=== PATIENT | female | born 1965 | race African-American/Black ===

== ENCOUNTER 2016-11-15 19:21 | Emergency (ER) | payer SELFPAY ==
--- NOTE | 2016-11-15 19:34 | ER Document Report ---
ED Medical Screen (RME) - General Stated Complaint: CHEST PAIN Time seen by provider: 19:31 Mode of Arrival: Ambulatory Information source: Patient Notes: 51 yo htn, hyperlipedemic, borderline diabetic. female with crushing retrosternal chest pain onset this morning, light at first, progressed throughout the day. Hot sweats. PA 2015, stents placed. in [place]. This pain feels like when she had the PA.
[2016-11-15] MEDS ORDERED: ASPIRIN 81 MG TABLET, CHEWABLE PO ONE (20:15)
[2016-11-15] MEDS ORDERED: NITROGLYCERIN 0.4 MG/TAB 25 TAB/BOTTLE SL PRN (20:16)
[2016-11-15 20:27] LABS: ABSOLUTE BASOPHILS # (AUTO) 0.1 10^3/uL (0.0-0.2); ABSOLUTE EOSINOPHILS # (AUTO) 0.3 10^3/uL (0.0-0.6); ABSOLUTE LYMPHOCYTES (AUTO) 2.7 10^3/uL (0.5-4.7); ABSOLUTE MONOCYTES (AUTO) 0.8 10^3/uL (0.1-1.4); ABSOLUTE NEUT (AUTO) 5.2 10^3/uL (1.7-8.2); BASOPHILS % (AUTO) 0.9 % (0-2); HEMATOCRIT 30.3 % (36.0-47.0); HEMOGLOBIN 9.9 g/dL (12.0-15.5); HGB HCT DIFFERENCE -0.6; LYMPHOCYTES % (AUTO) 30.1 % (13-45); MEAN CORPUSCULAR HEMOGLOBIN 24.7 pg (27.0-33.4); MEAN CORPUSCULAR HGB CONC 32.8 g/dL (32.0-36.0); MEAN CORPUSCULAR VOLUME 75 fl (80-97); MONOCYTES % (AUTO) 8.8 % (3-13); RED BLOOD COUNT 4.02 10^6/uL (3.72-5.28); RED CELL DISTRIBUTION WIDTH 14.8 % (11.5-14.0); SEGMENTED NEUTROPHILS % (AUTO) 57.2 % (42-78); WHITE BLOOD COUNT 9.1 10^3/uL (4.0-10.5)
[2016-11-15 20:44] LABS: ANION GAP 9 (5-19); BLOOD UREA NITROGEN 15 mg/dL (7-20); CARBON DIOXIDE 31 mmol/L (22-30); CHLORIDE 102 mmol/L (98-107); CREATININE RESULT 1.34 mg/dL (0.52-1.25); GLUCOSE 103 mg/dL (75-110); LIPASE 105.3 U/L (23-300); POTASSIUM 3.8 mmol/L (3.6-5.0); SODIUM 141.5 mmol/L (137-145)
[2016-11-15] MEDS: MORPHINE SULFATE 10 MG/ML INJ IV PRN ×2 (21:03→23:55)
[2016-11-15] MEDS ORDERED: MORPHINE SULFATE 10 MG/ML INJ IV ONE (21:43)
[2016-11-16] MEDS ORDERED: KETOROLAC TROMETHAMINE INJ/PF 30 MG/1 ML SDV IV ONE (01:21)
--- NOTE | 2016-11-16 01:21 | ER Document Report ---
ED General - General Chief Complaint: Chest Pain Stated Complaint: CHEST PAIN Mode of Arrival: Ambulatory Notes: Patient is a 51-year-old female with past medical history of known coronary artery disease with a stent placed 2 months ago, hypertension, hyperlipidemia, and obesity who presents with left-sided chest pain. States that she's had this pain for 2 days and became worse night prompting her to come to the emergency department. She describes it as a stabbing, pressure-like pain over the left chest. Denies any radiation of pain. Denies associated vomiting, diaphoresis, or shortness of breath. Exertion does not worsen the pain. States that this feels less intense than when she had her stress test and was found to have an NSTEMI during that event. 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 At time of arrival she states her pain is much less severe than it was prior to arrival. Notes that she took nitroglycerin at home which she worsened her pain. Nothing improved the pain. - Related Data Allergies/Adverse Reactions: No Known Allergies Allergy (Unverified 11/15/16 19:40) Past Medical History - General Information source: Patient - Social History Smoking Status: Never Smoker Frequency of alcohol use: None Drug Abuse: None Lives with: Spouse/Significant other Family History: Reviewed & Not Pertinent - Past Medical History Cardiac Medical History: Reports: Hx Hypertension Past Surgical History: Reports: Hx Cardiac Catheterization, Hx Hysterectomy - Immunizations Hx Diphtheria, Pertussis, Tetanus Vaccination: Yes Review of Systems - Review of Systems Notes: Constitutional: Negative for fever. HENT: Negative for sore throat. Eyes: Negative for visual changes. Cardiovascular: Positive for chest pain. Respiratory: Negative for shortness of breath. Gastrointestinal: Negative for abdominal pain, vomiting or diarrhea. Genitourinary: Negative for dysuria. Musculoskeletal: Negative for back pain. Skin: Negative for rash. Neurological: Negative for headaches, weakness or numbness. 10 point ROS negative except as marked above and in HPI. Physical Exam - Vital signs Vitals: Temp Pulse Resp BP Pulse Ox 98.0 F 86 22 H 120/78 100 11/15/16 19:33 11/15/16 19:33 11/15/16 19:33 11/15/16 19:33 11/15/16 19:33 Interpretation: Normal Notes: PHYSICAL EXAMINATION: GENERAL: Well-appearing, well-nourished and in no acute distress. HEAD: Atraumatic, normocephalic. EYES: Pupils equal round and reactive to light, extraocular movements intact, sclera anicteric, conjunctiva are normal. ENT: nares patent, oropharynx clear without exudates. Moist mucous membranes. NECK: Normal range of motion, supple without lymphadenopathy LUNGS: Breath sounds clear to auscultation bilaterally and equal. No wheezes rales or rhonchi. HEART: Regular rate and rhythm without murmurs Chest wall: Severe pain on palpation of the left anterior chest ABDOMEN: Soft, nontender, normoactive bowel sounds. No guarding, no rebound. No masses appreciated. EXTREMITIES: Normal range of motion, no pitting or edema. No cyanosis. NEUROLOGICAL: No focal neurological deficits. Moves all extremities spontaneously and on command. PSYCH: Normal mood, normal affect. SKIN: Warm, Dry, normal turgor, no rashes or lesions noted. Course - Re-evaluation Re-evalutation: 2315 Presentation of chest pain in an otherwise well appearing patient. Low clinical suspicion for ACS given clinical history, exam, EKG without ST elevations or depressions, and negative troponin 2 3 hours apart. PE also seems unlikely given clinical history, absence of tachycardia or dyspnea. Wells score is 0. CXR without evidence of pneumothorax or pneumonia. No widened mediastinum. Aortic dissection also seems unlikely given history, symmetric pulses, CXR, and vitals. Blood pressures equal in both upper extremities. Patient's pain did completely resolve. She had severely reproducible chest pain on exam with even the slightest palpation over the left chest wall causing an immediate reproduction of her pain.At this time will discharge with return precautions and follow-up recommendations. Verbal discharge instructions given a the bedside and opportunity for questions given. Medication warnings reviewed. Patient is in agreement with this plan and has verbalized understanding of return precautions and the need for primary care follow-up in the next 24-72 hours. - Vital Signs Vital signs: Temp Pulse Resp BP Pulse Ox 98.0 F 86 17 107/74 98 11/15/16 19:33 11/15/16 19:33 11/16/16 01:35 11/16/16 01:35 11/16/16 01:35 - Laboratory Result Diagrams: 11/15/16 20:15 01/08/17 20:15 Laboratory results interpreted by me: 11/15/16 11/15/16 20:15 20:15 Hgb 9.9 L Hct 30.3 L MCV 75 L MCH 24.7 L RDW 14.8 H Carbon Dioxide 31 H Creatinine 1.34 H Est GFR ( Amer) 51 L Est GFR (Non-Af Amer) 42 L Discharge - Discharge Clinical Impression: Chest pain Qualifiers: Chest pain type: unspecified Qualified Code(s): R07.9 - Chest pain, unspecified Condition: Good Disposition: HOME, SELF-CARE Additional Instructions: You were seen today for chest pain. The exact cause of your pain is unclear. However, based on your cardiac enzyme testing, chest x-ray, and EKG it does not appear that it is from an immediately life-threatening cause at this time. Although your testing here is normal is critical that you follow-up with your primary care physician for continued evaluation of this chest pain and possible stress testing. I recommended you see your physician within the next 24-48 hours to be evaluated for consideration of a stress test. Please return to emergency department immediately if you have worsening of your chest pain, shortness of breath, vomiting, become unable to exert yourself due to pain or difficulty breathing, you pass out, or have any pain that radiates into your arms, jaw, or back. Please also return if you have any additional symptoms that are concerning to you.
[2016-11-16] MEDS ORDERED: LIDOCAINE 5% (700 MG) TRANSDERMAL ADH..PATCH TP ONE (01:27)
[2016-11-16] MEDS: MORPHINE SULFATE 10 MG/ML INJ IV PRN (01:35)
[2016-11-16 02:26] VITALS: BP 105/75
--- NOTE | 2016-11-16 08:56 | EKG REPORT ---
SEVERITY:- ABNORMAL ECG - SINUS RHYTHM NONSPECIFIC T ABNORMALITIES, ANT-LAT LEADS : Confirmed by: Anna Paris 16-Nov-2016 08:55:49
--- NOTE | 2016-11-17 08:15 | EKG REPORT ---
SEVERITY:- ABNORMAL ECG - SINUS RHYTHM NONSPECIFIC T ABNORMALITIES, ANT-LAT LEADS : Confirmed on behalf of: Anna Paris 17-Nov-2016 08:14:51
== END 2016-11-16 02:55 | disposition home or self-care (01) ==
LOC: ER 19:21
DX: R07.9 Chest pain, unspecified (principal); I25.2 Old myocardial infarction
CPT/HCPCS: 93005 ×2; 99285; 96374; 96375; 36415; 83690; 85025; 80048; 84484; 71010; 93010 ×2; J1885; J2270 ×2

== ENCOUNTER 2017-01-13 06:27 | Day surgery (SDC) | payer BC ==
[~2017-01-13 06:27] MED LIST: KETOROLAC TROMETHAMINE 0.45% 4 DROP/0.4 ML DROPERETTE OS PRN
[2017-01-13] MEDS: BESIFLOXACIN HCL 0.6% OPH SUSP 5 ML BOTTLE OS PRN ×3 (06:55→08:02)
[2017-01-13] MEDS: CYCLOPENTOLATE 0.2%/PHENYLEPHRINE 1% OPH SOLN 2 ML OS PRN ×4 (06:55→07:16)
[2017-01-13] MEDS: TROPICAMIDE 1% OPH SOLN 3 ML OS PRN ×4 (06:55→07:16)
[2017-01-13] MEDS: TETRACAINE HCL 0.5% OPH SOLN 0.6 ML DROPERETTE OS PRN ×3 (06:56→07:16)
[2017-01-13] MEDS ORDERED: MIDAZOLAM 2 MG/2 ML INJ ONE (07:06)
[2017-01-13] MEDS ORDERED: FENTANYL CITRATE INJ/PF 100 MCG/2 ML AMPUL ONE (07:07)
[2017-01-13] MEDS ORDERED: LIDOCAINE 1% INJ-PF (10 MG/ML) 30 ML SDV ONE (07:08)
[2017-01-13] MEDS ORDERED: EPINEPHRINE INJ/PF 1 MG/1 ML AMPULE ONE (07:08)
[2017-01-13] MEDS ORDERED: CHONDR SU A NA/HYALUR INTRAOC KIT (SURGICARE) ONE (07:09)
[2017-01-13] MEDS ORDERED: BESIFLOXACIN HCL 0.6% OPH SUSP 5 ML BOTTLE ONE (07:09)
[2017-01-13] MEDS: TOBRAMYCIN SULFATE/DEXAMETH OPH OINTMENT 3.5 GM ONE ×2 (07:42→08:02)
== END 2017-01-13 08:46 | disposition home or self-care (01) ==
LOC: SC 06:27
PROVIDERS: ATTEND Ophthalmology
PROC: 08RK3JZ Replacement of Left Lens with Synthetic Substitute, Percutaneous Approach (ICD-10-PCS; principal; 2017-01-13 07:30)
DX: H25.12 Age-related nuclear cataract, left eye (principal); E78.00 Pure hypercholesterolemia, unspecified; E11.9 Type 2 diabetes mellitus without complications; I10 Essential (primary) hypertension; I25.10 Atherosclerotic heart disease of native coronary artery without angina pectoris; Z79.82 Long term (current) use of aspirin; Z79.899 Other long term (current) drug therapy; Z79.84 Long term (current) use of oral hypoglycemic drugs; Z87.891 Personal history of nicotine dependence; Z79.02 Long term (current) use of antithrombotics/antiplatelets; I25.2 Old myocardial infarction
CPT/HCPCS: 82962; 66984; V2630; J2250; J3490 ×3; J0171; J3010; 142

== ENCOUNTER 2017-01-27 07:25 | Day surgery (SDC) | payer BC ==
[~2017-01-27 07:25] MED LIST changes: +CHONDR SU A NA/HYALUR INTRAOC KIT (SURGICARE) ONE; +EPINEPHRINE INJ/PF 1 MG/1 ML AMPULE ONE; +KETOROLAC TROMETHAMINE 0.45% 4 DROP/0.4 ML DROPERETTE OD PRN; -KETOROLAC TROMETHAMINE 0.45% 4 DROP/0.4 ML DROPERETTE OS PRN; +LIDOCAINE 1% INJ-PF (10 MG/ML) 30 ML SDV ONE; +TOBRAMYCIN SULFATE/DEXAMETH OPH OINTMENT 3.5 GM ONE
[2017-01-27] MEDS: TROPICAMIDE 1% OPH SOLN 3 ML OD PRN ×3 (08:05→08:21)
[2017-01-27] MEDS: CYCLOPENTOLATE 0.2%/PHENYLEPHRINE 1% OPH SOLN 2 ML OD PRN ×3 (08:05→08:21)
[2017-01-27] MEDS: TETRACAINE HCL 0.5% OPH SOLN 0.6 ML DROPERETTE OD PRN ×3 (08:05→08:31)
[2017-01-27] MEDS: BESIFLOXACIN HCL 0.6% OPH SUSP 5 ML BOTTLE OD PRN ×3 (08:05→08:55)
[2017-01-27] MEDS ORDERED: MIDAZOLAM 2 MG/2 ML INJ ONE (08:20)
[2017-01-27] MEDS ORDERED: TRYPAN BLUE 0.06 % OPH SOLN 0.5 ML DISP.SYRIN ONE (08:20)
== END 2017-01-27 09:41 | disposition home or self-care (01) ==
LOC: SC 07:25
PROVIDERS: ATTEND Ophthalmology
PROC: 08RJ3JZ Replacement of Right Lens with Synthetic Substitute, Percutaneous Approach (ICD-10-PCS; principal; 2017-01-27 08:30)
DX: H25.11 Age-related nuclear cataract, right eye (principal); Z96.1 Presence of intraocular lens; I25.10 Atherosclerotic heart disease of native coronary artery without angina pectoris; E11.9 Type 2 diabetes mellitus without complications; I10 Essential (primary) hypertension; E78.00 Pure hypercholesterolemia, unspecified; M19.90 Unspecified osteoarthritis, unspecified site; Z79.82 Long term (current) use of aspirin; Z79.899 Other long term (current) drug therapy; Z79.84 Long term (current) use of oral hypoglycemic drugs; Z87.891 Personal history of nicotine dependence
CPT/HCPCS: 82962; 66984; V2630; J2250; J3490 ×3; J0171; 142

== ENCOUNTER 2017-04-12 15:18 | Emergency (ER) | payer SELFPAY ==
--- NOTE | 2017-04-12 15:30 | ER Document Report ---
ED Medical Screen (RME) - General Chief Complaint: Numbness of Face Stated Complaint: NUMBNESS/TINGLING LEFT SIDE Time Seen by Provider: 04/12/17 15:29 Notes: Patient says that her left face became numb a couple of hours ago while she was at work. She felt the numbness in her left arm and leg as well. It caused her to have trouble walking and keeping her balance. She feels like needles sticking in her face on the left side. Also, experiencing a sharp pain in the back of her head. Has never had this before and has never had a stroke before. Has had a heart attack in the past. TRAVEL OUTSIDE OF THE [place] IN LAST 30 DAYS: No - Related Data Allergies/Adverse Reactions: atorvastatin [From Lipitor] Allergy (Verified 04/12/17 15:20) Generalized rash Past Medical History - Past Medical History Cardiac Medical History: Reports: Hx Heart Attack - SEP 18, 2016, Hx Hypertension Pulmonary Medical History: Denies: Hx Asthma Neurological Medical History: Denies: Hx Cerebrovascular Accident, Hx Seizures Renal/ Medical History: Denies: Hx Peritoneal Dialysis GI Medical History: Denies: Hx Hepatitis, Hx Hiatal Hernia, Hx Ulcer Infectious Medical History: Denies: Hx Hepatitis Past Surgical History: Reports: Hx Cardiac Catheterization, Hx Hysterectomy. Denies: Hx Mastectomy, Hx Open Heart Surgery, Hx Pacemaker - Immunizations Hx Diphtheria, Pertussis, Tetanus Vaccination: Yes Physical Exam - Vital signs Vitals: Temp Pulse Resp BP Pulse Ox 97.8 F 95 19 113/69 99 04/12/17 15:20 04/12/17 15:20 04/12/17 15:20 04/12/17 15:20 04/12/17 15:20 Course - Vital Signs Vital signs: Temp Pulse Resp BP Pulse Ox 97.8 F 95 19 113/69 99 04/12/17 15:20 04/12/17 15:20 04/12/17 15:20 04/12/17 15:20 04/12/17 15:20
--- NOTE | 2017-04-12 15:46 | RADIOLOGY REPORT (SQ) ---
EXAM DESCRIPTION: CT HEAD WITHOUT COMPLETED DATE/TIME: 04/12/2017 3:37 pm REASON FOR STUDY: STROKE COMPARISON: None. TECHNIQUE: Axial images acquired through the brain without intravenous contrast. Images reviewed wi th bone, brain and subdural windows. Images stored on PACS. All CT scanners at this facility use dose modulation, iterative reconstruction, and/or weight based d osing when appropriate to reduce radiation dose to as low as reasonably achievable (ALARA). [facility]: Dose Right [facility]: CareDose [facility]: Dose Right [facility]: Teradose 4D [facility]: Folloze RADIATION DOSE: 64.61 mGy. LIMITATIONS: None. FINDINGS: VENTRICLES: Normal size and contour. CEREBRUM: No masses. No hemorrhage. No midline shift. Normal zurita/white matter differentiation. N o evidence for acute infarction. CEREBELLUM: No masses. No hemorrhage. No alteration of density. No evidence for acute infarction. EXTRAAXIAL SPACES: No fluid collections. No masses. ORBITS AND GLOBE: No intra- or extraconal masses. Normal contour of globe without masses. CALVARIUM: No fracture. PARANASAL SINUSES: No fluid or mucosal thickening. SOFT TISSUES: No mass or hematoma. OTHER: No other significant finding. IMPRESSION: NORMAL BRAIN CT WITHOUT CONTRAST. TECHNICAL DOCUMENTATION: JOB ID: [id number] Quality ID # [id number]: Final reports with documentation of one or more dose reduction techniques (e.g., Au tomated exposure control, adjustment of the mA and/or kV according to patient size, use of iterative reconstruction technique) 2010 [employer]- All Rights Reserved
--- NOTE | 2017-04-12 15:52 | RADIOLOGY REPORT (SQ) ---
EXAM DESCRIPTION: CHEST SINGLE VIEW COMPLETED DATE/TIME: 04/12/2017 3:41 pm REASON FOR STUDY: STROKE COMPARISON: 06/15/2017 EXAM PARAMETERS: NUMBER OF VIEWS: One view. TECHNIQUE: Single frontal radiographic view of the chest acquired. RADIATION DOSE: NA LIMITATIONS: None. FINDINGS: LUNGS AND PLEURA: No opacities, masses or pneumothorax. No pleural effusion. MEDIASTINUM AND HILAR STRUCTURES: No masses. Contour normal. HEART AND VASCULAR STRUCTURES: Heart normal in size. Normal vasculature. BONES: No acute findings. HARDWARE: None in the chest. OTHER: No other significant finding. IMPRESSION: NO ACUTE RADIOGRAPHIC FINDING IN THE CHEST. TECHNICAL DOCUMENTATION: JOB ID: [id number]
--- NOTE | 2017-04-12 15:54 | ER Document Report ---
ED NIH Stroke Scale - NIH Stroke Scale *: 1. NIH scale should be completed with appropriate accompanying assessment tools. *: 2. The NIH should reflect what the patient is capable of doing and should not be coached by the clinician. 1a. Level of Consciousness: 0=Alert;keenly responsive -: 1=Drowsy -: 2=Obtunded -: 3=Coma/unresponsive or reflex to noxious stimuli. 1a. Responses: 0 1b. Orientation Questions: a. What month is it? -: b. How old are you? -: 0=Answers both questions correctly. -: 1=Answers one question correctly or patient is intubated or has orotracheal trauma. -: 2=Answers neither question correctly. 1b. Responses: 0 1c. Response to commands: a. Open and close eyes? -: b. Combination Saw Operator and release hand? -: Credit is given despite weakness. Demonstration of task is permitted. Substitute command if hands cannot be used. -: 0=Performs both tasks correctly -: 1=Performs one task correctly -: 2=Performs neither task correctly 1c. Responses: 0 2. Gaze: Establish eye contact and instruct patient to "Follow my finger" -: 0=Normal -: 1=Partial gaze palsy. Gaze is abnormal in one or both eyes, but where forced deviation or total gaze paresis is not present. -: 2=Forced deviation or total gaze paresis. 2. Responses: 0 3. Visual Rosas: Sees fingers in all four quadrants. -: 0=No visual loss. -: 1=Partial hemianopsia. -: 2=Complete hemianopsia. -: 3=Bilateral hemianopsia (including Cortical blindness) 3. Responses: 0 4. Facial Movement: Instruct patient to: -: a. Show me your teeth -: b. Raise your eyebrows -: c. Close your eyes -: d. Smile -: 0=Normal symmetrical movement -: 1=Minor paralysis (flattened nasolabial fold, asymmetry on smiling). -: 2=Partial paralysis (total or near total paralysis of lower face). -: 3=Complete paralysis of upper and lower face 4. Responses: 0 5. Motor functions (left arm): Alternate sides and extend each arm with palms down (90 degrees if sitting or 45 degrees for supine). -: 0=No drift;limb holds for full 10 seconds. -: 1=Drift; limb holds but drifts down before full 10 seconds, but does not hit bed. -: 2=Some effort against gravity; limb cannot get to or maintain position. -: 3=No effort against gravity; limb falls. -: 4=No movement. -: UN=Amputation, joint fusion, explain in comments. 5. Responses (left arm): 0 5. Motor Functions (right arm): Alternate sides and extend each arm with palms down (90 degrees if sitting or 45 degrees for supine). -: 0=No drift;limb holds for full 10 seconds. -: 1=Drift; limb holds but drifts down before full 10 seconds, but does not hit bed. -: 2=Some effort against gravity; limb cannot get to or maintain position. -: 3=No effort against gravity; limb falls. -: 4=No movement. -: UN=Amputation, joint fusion, explain in comments. 5. Responses (right arm): 0 6. Motor Functions (left leg): With patient lying supine, alternate sides and extend each leg (30 degrees always while supine). -: 0=No drift, leg holds position for full 5 seconds -: 1=Drift; leg falls before full 5 seconds but does not hit bed. -: 2=Some effort against gravity, leg falls to bed but some effort against gravity. -: 3=No effort against gravity, leg falls to bed immediately. -: 4=No movement. -: UN=Amputation, joint fusion; explain in comments. 6. Responses (left leg): 0 6. Motor Functions (right leg): With patient lying supine, alternate sides and extend each leg (30 degrees always while supine). -: 0=No drift, leg holds position for full 5 seconds -: 1=Drift; leg falls before full 5 seconds but does not hit bed. -: 2=Some effort against gravity, leg falls to bed but some effort against gravity. -: 3=No effort against gravity, leg falls to bed immediately. -: 4=No movement. -: UN=Amputation, joint fusion; explain in comments. 6. Responses (right leg): 0 7. Limb Ataxia: With eyes open instruct patient to: -: a. "Touch your finger to your nose". -: b. "Touch your heel to your valentin" -: 0=Absent -: 1=Present in one limb. -: 2=Present in two limbs. -: UN=Amputation or joint fusion; explain in comments. 7. Responses: 0 8. Sensory: Test sensation using pinprick or noxious stimuli. Test as many body parts as possible. -: 0=Normal;no sensory loss -: 1=Mile to moderate sensory loss (patient feels pin prick but is less sharp on affected side). -: 2=Severe or total sensory loss. 8. Responses: 0 9. Best Language: Instruct patient to: -: a. "Describe what you see in this picture." -: b. "Name the items in this picture." -: c. "Read these sentences." -: 0=No aphasia, normal -: 1=Mild to moderate aphasia. -: 2=Severe aphasia -: 3=Mute, global aphasia, no usable speech or auditory comprehension. 9. Responses: 0 10. Articulation, Dysarthia: Instruct patient to: -: "Read these words" or "Repeat these words" -: 0=Normal -: 1=Mild to moderate; patient may slur some words but can be understood without difficulty. -: 2=Severe; patients speech so slurred as to be unintelligible in the absence of dysphasia. -: UN=Intubated or other physical barrier, explain in comments. 10. Responses: 0 11. Extinction or inattention: 0=No abnormality -: 1= Visual, tactile, auditory, spatial, or personal inattention or extinction to bilateral simulation in one or the sensory modalities. -: 2=Profound radha-inattention or radha-inattention to more than one modality; does not recognize own hand. 11. Responses: 0 Total Score: 0
--- NOTE | 2017-04-12 16:12 | ER Document Report ---
ED General - General Chief Complaint: Numbness of Face Stated Complaint: NUMBNESS/TINGLING LEFT SIDE Time Seen by Provider: 04/12/17 15:29 Mode of Arrival: Wheelchair Information source: Patient Notes: 51-year-old female presents with complaints of left leg pain. Pt notes that is hurtsto walk due ot the pain, notes she has chronic back pain., pt notes that after the pain occured she started to feel tingling and numb on the left hand and left side of her face. TRAVEL OUTSIDE OF THE [place] IN LAST 30 DAYS: No - HPI Onset: Just prior to arrival Onset/Duration: Sudden Quality of pain: Sharp Severity: Mild Pain Level: 1 Associated symptoms: Body/muscle aches, Headache Exacerbated by: Movement Relieved by: Denies Similar symptoms previously: Yes Recently seen / treated by doctor: Yes - Related Data Allergies/Adverse Reactions: atorvastatin [From Lipitor] Allergy (Verified 04/12/17 15:20) Generalized rash Past Medical History - Social History Smoking Status: Never Smoker Cigarette use (# per day): No Chew tobacco use (# tins/day): No Smoking Education Provided: No Family History: Reviewed & Not Pertinent Patient has suicidal ideation: No Patient has homicidal ideation: No - Past Medical History Cardiac Medical History: Reports: Hx Heart Attack - SEP 18, 2016, Hx Hypertension Pulmonary Medical History: Denies: Hx Asthma Neurological Medical History: Denies: Hx Cerebrovascular Accident, Hx Seizures Renal/ Medical History: Denies: Hx Peritoneal Dialysis GI Medical History: Denies: Hx Hepatitis, Hx Hiatal Hernia, Hx Ulcer Infectious Medical History: Denies: Hx Hepatitis Past Surgical History: Reports: Hx Cardiac Catheterization, Hx Hysterectomy. Denies: Hx Mastectomy, Hx Open Heart Surgery, Hx Pacemaker - Immunizations Hx Diphtheria, Pertussis, Tetanus Vaccination: Yes Review of Systems - Review of Systems Notes: REVIEW OF SYSTEMS: CONSTITUTIONAL : Denies fever, chills, or sweats. Denies recent illness. EENT: Denies eye, ear, throat, or mouth pain or symptoms. Denies nasal or sinus congestion or discharge. Denies throat, tongue, or mouth swelling or difficulty swallowing. CARDIOVASCULAR: Denies chest pain. Denies palpitations or racing or irregular heart beat. Denies ankle edema. RESPIRATORY: Denies cough, cold, or chest congestion. Denies shortness of breath, difficulty breathing, or wheezing. GASTROINTESTINAL: Denies abdominal pain or distention. Denies nausea, vomiting , or diarrhea. Denies blood in vomitus, stools, or per rectum. Denies black, tarry stools. Denies constipation. GENITOURINARY: Denies difficulty urinating, painful urination, burning, frequency, blood in urine, or discharge. FEMALE GENITOURINARY: Denies vaginal bleeding, heavy or abnormal periods, irregular periods. Denies vaginal discharge or odor. MUSCULOSKELETAL: Admits to leg pain chronic back pain SKIN: Denies rash, lesions or sores. HEMATOLOGIC : Denies easy bruising or bleeding. LYMPHATIC: Denies swollen, enlarged glands. NEUROLOGICAL: Facial numbness on the left and tingling in her hands PSYCHIATRIC: Denies anxiety or stress. Denies depression, suicidal ideation, or homicidal ideation. ALL OTHER SYSTEMS REVIEWED AND NEGATIVE. Dictation was performed using [employer] voice recognition software PHYSICAL EXAMINATION: GENERAL: Well-appearing, well-nourished and in no acute distress. HEAD: Atraumatic, normocephalic. EYES: Pupils equal round and reactive to light, extraocular movements intact, conjunctiva are normal. ENT: Nares patent, oropharynx clear without exudates. Moist mucous membranes. NECK: Normal range of motion, supple without lymphadenopathy LUNGS: Breath sounds clear to auscultation bilaterally and equal. No wheezes rales or rhonchi. HEART: Regular rate and rhythm without murmurs ABDOMEN: Soft, nontender, nondistended abdomen. No guarding, no rebound. No masses appreciated. Female : deferred Musculoskeletal: Pain with movement of her left leg but is able to ambulate with no weakness numbness NEUROLOGICAL: Cranial nerves grossly intact. Normal speech, normal gait. Normal sensory, motor exams PSYCH: Normal mood, normal affect. SKIN: Warm, Dry, normal turgor, no rashes or lesions noted. Physical Exam - Vital signs Vitals: Temp Pulse Resp BP Pulse Ox 97.8 F 95 19 113/69 99 04/12/17 15:20 04/12/17 15:20 04/12/17 15:20 04/12/17 15:20 04/12/17 15:20 Course - Re-evaluation Re-evalutation: 04/12/17 16:11 Patient immediately was sent for CT of her head which noted no acute abnormality , I have extremely low suspicion for a stroke given that patient symptoms are painful with movement of her leg. I believe this is more back related rather than actually secondary to a stroke. Nonetheless an MRI has been ordered 04/12/17 19:39 MRI head noted no acute abnormality, I believe patient's symptoms are secondary to nerve impingement. Patient otherwise looks well and is no distress. She has no cauda equina concerns. Patient will follow up with her physician and promises that she will have her back pain evaluated Does admit to renal insufficiency in the past I have explained to the labs and she will follow-up for this as well After performing a Medical Screening Examination, I estimate there is LOW risk for EXPANDING OR RUPTURED ABDOMINAL AORTIC ANEURYSM, CAUDA EQUINA SYNDROME, EPIDURAL MASS LESION, or HERNIATED DISK CAUSING SEVERE SPINAL STENOSIS, thus I consider the discharge disposition reasonable. I have reevaluated this patient multiple times and no significant life threatening changes are noted. The patient and I have discussed the diagnosis and risks, and we agree with discharging home and close follow-up. We also discussed returning to the Emergency Department immediately if new or worsening symptoms occur with the understanding that symptoms and presentations can change. We have discussed the symptoms which are most concerning (e.g., saddle anesthesia, urinary or bowel incontinence or retention, changing or worsening pain) that necessitate immediate return. 04/12/17 19:40 - Vital Signs Vital signs: Temp Pulse Resp BP Pulse Ox 98.4 F 74 18 116/82 100 04/12/17 17:01 04/12/17 16:00 04/12/17 17:01 04/12/17 17:01 04/12/17 17:00 - Laboratory Result Diagrams: 04/12/17 16:24 04/12/17 16:24 Laboratory results interpreted by me: 04/12/17 04/12/17 16:24 16:24 Hgb 11.4 L Hct 35.6 L MCV 79 L MCH 25.0 L MCHC 31.9 L RDW 15.5 H BUN 26 H Creatinine 2.05 H Est GFR ( Amer) 31 L Est GFR (Non-Af Amer) 26 L Calcium 10.5 H AST 42 H Creatine Kinase 1170 H - Diagnostic Test Radiology reviewed: Image reviewed, Reports reviewed Discharge - Discharge Clinical Impression: CKD (chronic kidney disease) Qualifiers: Chronic kidney disease stage: stage 2 (mild) Qualified Code(s): N18.2 - Chronic kidney disease, stage 2 (mild) Leg pain Qualifiers: Laterality: left Qualified Code(s): M79.605 - Pain in left leg Back pain Qualifiers: Back pain location: low back pain Chronicity: chronic Back pain laterality: left Sciatica presence: with sciatica Sciatica laterality: sciatica of left side Qualified Code(s): M54.42 - Lumbago with sciatica, left side Condition: Stable Disposition: HOME, SELF-CARE Instructions: Low Back Pain ([facility]) Additional Instructions: Follow up with your physician tomorrow for further care or return to the ED IMMEDIATELY if symptoms worsen or new concerns occur. If you cannot afford to follow up with your primary care physician a list of low cost clinics have been provided at the end of your discharge papers as well.
[2017-04-12 16:41] LABS: ABSOLUTE BASOPHILS # (AUTO) 0.1 10^3/uL (0.0-0.2); ABSOLUTE EOSINOPHILS # (AUTO) 0.2 10^3/uL (0.0-0.6); ABSOLUTE LYMPHOCYTES (AUTO) 3.2 10^3/uL (0.5-4.7); ABSOLUTE MONOCYTES (AUTO) 0.7 10^3/uL (0.1-1.4); BASOPHILS % (AUTO) 0.8 % (0-2); EOSINOPHILS % (AUTO) 2.5 % (0-6); HEMATOCRIT 35.6 % (36.0-47.0); HEMOGLOBIN 11.4 g/dL (12.0-15.5); HGB HCT DIFFERENCE -1.4; LYMPHOCYTES % (AUTO) 39.1 % (13-45); MEAN CORPUSCULAR HGB CONC 31.9 g/dL (32.0-36.0); MEAN CORPUSCULAR VOLUME 79 fl (80-97); MONOCYTES % (AUTO) 8.3 % (3-13); RED BLOOD COUNT 4.53 10^6/uL (3.72-5.28); RED CELL DISTRIBUTION WIDTH 15.5 % (11.5-14.0); SEGMENTED NEUTROPHILS % (AUTO) 49.3 % (42-78); WHITE BLOOD COUNT 8.1 10^3/uL (4.0-10.5)
[2017-04-12 16:54] LABS: ALANINE AMINOTRANSFERASE 38 U/L (9-52); ALBUMIN 4.5 g/dL (3.5-5.0); ALKALINE PHOSPHATASE 111 U/L (38-126); ANION GAP 15 (5-19); ASPARTATE AMINO TRANSFERASE 42 U/L (14-36); BILIRUBIN,DIRECT 0.4 mg/dL (0.0-0.4); BILIRUBIN,TOTAL 0.8 mg/dL (0.2-1.3); BLOOD UREA NITROGEN 26 mg/dL (7-20); CALCIUM 10.5 mg/dL (8.4-10.2); CARBON DIOXIDE 24 mmol/L (22-30); CHLORIDE 103 mmol/L (98-107); CREATINE KINASE 1170 U/L (30-135); CREATININE RESULT 2.05 mg/dL (0.52-1.25); GLUCOSE 92 mg/dL (75-110); POTASSIUM 4.5 mmol/L (3.6-5.0); SODIUM 141.9 mmol/L (137-145); TOTAL PROTEIN 8.1 g/dL (6.3-8.2)
[2017-04-12 17:06] LABS: CREATINE KINASE MB 3.77 ng/mL (<4.55)
[2017-04-12 17:08] LABS: TROPONIN I < 0.012 ng/mL
[2017-04-12] MEDS ORDERED: NORMAL SALINE 1000 ML 1,000 ML IV ONE (17:08)
[2017-04-12] MEDS ORDERED: MORPHINE SULFATE 10 MG/ML INJ IV ONE (18:17)
--- NOTE | 2017-04-12 18:17 | RADIOLOGY REPORT (SQ) ---
EXAM DESCRIPTION: MRI HEAD WITHOUT COMPLETED DATE/TIME: 04/12/2017 5:51 pm REASON FOR STUDY: left sided numbness COMPARISON: None. TECHNIQUE: Multiplanar imaging includes non-contrasted T1, T2, FLAIR, and diffusion with ADC map seq uences. Images stored on PACS. LIMITATIONS: None. FINDINGS: ANATOMY: No anomalies. Normal vascular flow voids. Pituitary fossa normal. CSF SPACES: Normal in size and contour. No hemorrhage. CEREBRUM: Sulci and gyri normal in size and contour. Normal white matter signal on FLAIR imaging. No evidence of hemorrhage, mass, or extraaxial fluid collection. POSTERIOR FOSSA: No signal alteration. No hemorrhage. No edema, masses or mass effect. Internal stacey tory canals, cerebello-pontine angles, mastoids normal. DIFFUSION IMAGING: Negative for acute or sub-acute infarction. ORBITS: No masses. Globes normal. PARANASAL SINUSES: No fluid levels. Mucosa normal. OTHER: No other significant finding. IMPRESSION: NORMAL MRI OF THE BRAIN WITHOUT INTRAVENOUS GADOLINIUM CONTRAST. TECHNICAL DOCUMENTATION: JOB ID: [id number] [employer]- All Rights Reserved
[2017-04-12 19:41] LABS: APPEARANCE,URINE SLIGHTLY-CLOUDY; BILIRUBIN,URINE NEGATIVE (NEGATIVE); GLUCOSE, URINE NEGATIVE (NEGATIVE); KETONES,URINE TRACE mg/dL (NEGATIVE); LEUKOCYTE ESTERASE,URINE SMALL (NEGATIVE); NITRITE,URINE NEGATIVE (NEGATIVE); PROTEIN,URINE NEGATIVE (NEGATIVE); URINE SPECIFIC GRAVITY 1.017; UROBILINOGEN,URINE NEGATIVE mg/dL (<2.0)
[2017-04-12] MEDS ORDERED: DEXAMETHASONE SOD PHOS INJ 10 MG/1 ML VIAL IV ONE (19:41)
[2017-04-12 20:05] VITALS: BP 114/79
--- NOTE | 2017-04-12 21:16 | EKG REPORT ---
SEVERITY:- NORMAL ECG - SINUS RHYTHM : Confirmed by: Anna Paris 12-Apr-2017 21:15:41
== END 2017-04-12 19:58 | disposition home or self-care (01) ==
LOC: ER 15:18
DX: M54.42 Lumbago with sciatica, left side (principal); G89.29 Other chronic pain; M79.605 Pain in left leg; R20.0 Anesthesia of skin; R20.2 Paresthesia of skin; R51 Headache; I12.9 Hypertensive chronic kidney disease with stage 1 through stage 4 chronic kidney disease, or unspecified chronic kidney disease; N18.2 Chronic kidney disease, stage 2 (mild); I25.2 Old myocardial infarction; Z88.8 Allergy status to other drugs, medicaments and biological substances
CPT/HCPCS: 93005; 99285; 96361; 96374; 96375; 36415; 82553; 82550; 85025; 80053; 81001; 84484; 70551; 71010; 70450; 93010; J2270; J7030; J1100

== ENCOUNTER 2017-11-07 20:08 | Emergency (ER) | payer SELFPAY ==
[2017-11-07 20:31] LABS: ABSOLUTE EOSINOPHILS # (AUTO) 0.1 10^3/uL (0.0-0.6); ABSOLUTE MONOCYTES (AUTO) 0.6 10^3/uL (0.1-1.4); ABSOLUTE NEUT (AUTO) 4.8 10^3/uL (1.7-8.2); BASOPHILS % (AUTO) 0.3 % (0-2); EOSINOPHILS % (AUTO) 1.4 % (0-6); HEMOGLOBIN 11.6 g/dL (12.0-15.5); LYMPHOCYTES % (AUTO) 34.8 % (13-45); MEAN CORPUSCULAR HEMOGLOBIN 24.5 pg (27.0-33.4); MEAN CORPUSCULAR HGB CONC 32.1 g/dL (32.0-36.0); MEAN CORPUSCULAR VOLUME 76 fl (80-97); MONOCYTES % (AUTO) 7.6 % (3-13); PLATELET COUNT 317 10^3/uL (150-450); RED BLOOD COUNT 4.73 10^6/uL (3.72-5.28); SEGMENTED NEUTROPHILS % (AUTO) 55.9 % (42-78); TOTAL CELLS COUNTED % (AUTO) 100 %; WHITE BLOOD COUNT 8.5 10^3/uL (4.0-10.5)
--- NOTE | 2017-11-07 20:32 | ER Document Report ---
ED General - General Chief Complaint: Chest Pain > 30 Stated Complaint: CHEST PAIN Time Seen by Provider: 11/07/17 20:20 TRAVEL OUTSIDE OF THE [place] IN LAST 30 DAYS: No - HPI Notes: Patient is a 52-year-old female with a history of hypertension, hypercholesterolemia, CKD, coronary artery disease with one stent placement in 2015 (1 year ago), and type 2 diabetes who presents to the ED complaining of left-sided sharp chest pain that began this afternoon. Patient states that ambulation does not worsen her pain. Nitro did not seem to help this afternoon. The pain does not radiate (as otherwise noted in triage note). Patient states that she did have pain like this a couple months after her SD and was diagnosed with a chest wall pain. Patient states that she has not been diaphoretic or dizzy. Patient is eating and drinking without any difficulties or changes in her symptoms. She is urinating normally and having normal bowel movements. Patient denies any prolonged immobilization, recent trauma/surgery, hormone replacement, previous DVT/PE, cancer, or other immunocompromised condition. Patient does admit to smoking but denies IV drug use. Patient states that she does take Pradaxa. Denies any headache, fever, neck pain, URI, sore throat, palpitations, syncope, cough, shortness of breath, wheeze, dyspnea , abdominal pain, nausea/vomiting/diarrhea, urinary retention, dysuria, hematuria, loss of control of bowel or bladder, numbness/tingling, muscle paralysis/weakness, or rash. - Related Data Allergies/Adverse Reactions: atorvastatin [From Lipitor] Allergy (Verified 04/12/17 15:20) Generalized rash Past Medical History - Social History Smoking Status: Unknown if Ever Smoked Family History: Reviewed & Not Pertinent Patient has suicidal ideation: No Patient has homicidal ideation: No - Past Medical History Cardiac Medical History: Reports: Hx Heart Attack - SEP 18, 2016, Hx Hypercholesterolemia, Hx Hypertension Pulmonary Medical History: Denies: Hx Asthma Neurological Medical History: Denies: Hx Cerebrovascular Accident, Hx Seizures Endocrine Medical History: Reports: Hx Diabetes Mellitus Type 2 Renal/ Medical History: Denies: Hx Peritoneal Dialysis GI Medical History: Denies: Hx Hepatitis, Hx Hiatal Hernia, Hx Ulcer Infectious Medical History: Denies: Hx Hepatitis Past Surgical History: Reports: Hx Cardiac Catheterization, Hx Cardiac Surgery - stent placed in 2016, Hx Hysterectomy. Denies: Hx Mastectomy, Hx Open Heart Surgery, Hx Pacemaker - Immunizations Hx Diphtheria, Pertussis, Tetanus Vaccination: Yes Review of Systems - Review of Systems Notes: REVIEW OF SYSTEMS: CONSTITUTIONAL : Denies fever, chills, or sweats. Denies recent illness. EENT: Denies eye, ear, throat, or mouth pain or symptoms. Denies nasal or sinus congestion or discharge. Denies throat, tongue, or mouth swelling or difficulty swallowing. CARDIOVASCULAR: see hpi. Denies palpitations or racing or irregular heart beat. Denies ankle edema. RESPIRATORY: Denies cough, cold, or chest congestion. Denies shortness of breath, difficulty breathing, or wheezing. GASTROINTESTINAL: Denies abdominal pain or distention. Denies nausea, vomiting , or diarrhea. Denies blood in vomitus, stools, or per rectum. Denies black, tarry stools. Denies constipation. GENITOURINARY: Denies difficulty urinating, painful urination, burning, frequency, blood in urine, or discharge. MUSCULOSKELETAL: see hpi SKIN: Denies rash, lesions or sores. NEUROLOGICAL: Denies dizziness or lightheadedness. Denies headache. Denies weakness or paralysis or loss of use of either side. Denies problems with gait or speech. Denies sensory loss, numbness, or tingling. Denies seizures. ALL OTHER SYSTEMS REVIEWED AND NEGATIVE. Dictation was performed using [employer] voice recognition software Physical Exam - Vital signs Vitals: BP Pulse Ox 109/79 94 11/07/17 20:15 11/07/17 20:15 Notes: PHYSICAL EXAMINATION: Accompanied by female nurseRuthie. GENERAL: Well-appearing, well-nourished and in no acute distress. A&Ox4 HEAD: Atraumatic, normocephalic. EYES: Pupils equal round and reactive to light, extraocular movements intact, sclera anicteric, conjunctiva are normal. ENT: Nares patent and without discharge. oropharynx clear without exudates. No tonsilar hypertrophy or erythema. Moist mucous membranes. NECK: Normal range of motion, supple without lymphadenopathy Chest: + severe tenderness to palp of the left inferior chest (correlates to the pain described per patient). Equal rise/fall. no flail chest or deformity. no ecchymosis or erythema. No breast swelling, erythema, abscess, or tenderness. LUNGS: Breath sounds clear to auscultation bilaterally and equal. No wheezes rales or rhonchi. HEART: Regular rate and rhythm without murmurs, rubs, gallops. ABDOMEN: Soft, nontender, nondistended abdomen. No guarding, no rebound. No masses appreciated. Normal bowel sounds present. No CVA tenderness bilaterally. Musculoskeletal: FROM to passive/active. Strength 5+/5. Extremities: No cyanosis, clubbing, or edema b/l. Peripheral pulses 2+ b/l and equal. Capillary refill less than 3 seconds. NEUROLOGICAL: Cranial nerves grossly intact. Normal speech, normal gait. Normal sensory, motor exams PSYCH: Normal mood, normal affect. SKIN: Warm, Dry, normal turgor, no rashes or lesions noted. Course - Re-evaluation Re-evalutation: 11/08/17 00:47 Patient is an afebrile, well-hydrated, 52-year-old female who presents to the ED with chest wall pain, suspect benign at this time. Vitals are stable. PE is otherwise unremarkable aside from a very tender chest wall which correlates with her complaint. Patient is tolerating p.o. Patient was given 500 l normal saline prior to CTA and 1.5L thereafter. CBC, CMP, cardiac enzymes/EKG 2 unremarkable for any acute pathology. D-dimer was ordered and came back mildly elevated. CT of the chest was unremarkable for any acute pathology. Patient has a heart score of 3, well's score of 0. Low suspicion for any ACS, PE, pneumothorax, pericarditis, dissection, respiratory compromise, severe dehydration, sepsis, meningitis, or other systemic emergent condition at this time. Patient is aware that her condition can change from initial presentation and she needs to monitor symptoms closely and seek medical attention for any acute changes. I did review that patient will need to hold her metformin until she has her kidney functions rechecked in 2-3 days by her primary care provider. Recommend conservative measures for symptoms. Recheck with your PCM in 2-3 days. Consider consult with a school age program teacher. Return to the ED with any worsening/concerning symptoms otherwise as reviewed in discharge. Patient is in agreement. Reviewed with Dr. Robles who is in agreement with discharge/ plan. - Vital Signs Vital signs: Temp Pulse Resp BP Pulse Ox 19 122/82 100 11/07/17 23:00 11/07/17 22:00 11/07/17 23:00 - Laboratory Result Diagrams: 11/07/17 20:19 11/07/17 20:19 Laboratory results interpreted by me: 11/07/17 11/07/17 11/07/17 20:19 20:19 20:19 Hgb 11.6 L MCV 76 L MCH 24.5 L RDW 16.0 H D-Dimer 0.75 H BUN 26 H Creatinine 1.70 H Est GFR ( Amer) 38 L Est GFR (Non-Af Amer) 32 L Creatine Kinase 658 H Discharge - Discharge Clinical Impression: Chest wall pain Chronic kidney disease Qualifiers: Chronic kidney disease stage: stage 2 (mild) Qualified Code(s): N18.2 - Chronic kidney disease, stage 2 (mild) Condition: Stable Disposition: HOME, SELF-CARE Instructions: Chest Wall Pain ([facility]) Additional Instructions: You need to hold (i.e. stop) your metformin until you have your kidney function rechecked in 2-3 days* You will need close f/u with your PCM this week. Monitor symptoms closely for any acute changes Maintain adequate fluid intake and urinary output Tylenol/Ibuprofen as needed. Consider consult with a school age program teacher Return to the ED with any worsening symptoms and/or development of fever, headache, chest pain, palpitations, syncope, shortness of breath, trouble breathing, abdominal pain, n/v/d, blood in stool/urine, loss of control of bowel /bladder, urinary retention, numbness/tingling, or other worsening symptoms that are concerning to you. Prescriptions: Lidocaine [Lidoderm] 1 each TP DAILY #30 adh..patch Referrals: ROGELIO JERONIMO MD [ACTIVE STAFF] - Follow up as needed LUISANA CHAVIRA MD [NO LOCAL MD] - 11/09/17
[2017-11-07] MEDS ORDERED: CEFTRIAXONE INJ 250 MG VIAL IM ONE (20:40)
[2017-11-07] MEDS ORDERED: AZITHROMYCIN 250 MG TABLET PO ONE (20:40)
[2017-11-07] MEDS ORDERED: LIDOCAINE 1% INJ-PF (10 MG/ML) 30 ML SDV INJ ONE (20:40)
[2017-11-07 20:46] LABS: ALANINE AMINOTRANSFERASE 29 U/L (9-52); ALBUMIN 4.3 g/dL (3.5-5.0); ALKALINE PHOSPHATASE 108 U/L (38-126); ANION GAP 15 (5-19); ASPARTATE AMINO TRANSFERASE 25 U/L (14-36); BILIRUBIN,DIRECT 0.3 mg/dL (0.0-0.4); BILIRUBIN,TOTAL 0.8 mg/dL (0.2-1.3); BLOOD UREA NITROGEN 26 mg/dL (7-20); CALCIUM 10.1 mg/dL (8.4-10.2); CARBON DIOXIDE 26 mmol/L (22-30); CHLORIDE 104 mmol/L (98-107); CREATINE KINASE 658 U/L (30-135); GLUCOSE 102 mg/dL (75-110); POTASSIUM 3.6 mmol/L (3.6-5.0); SODIUM 144.8 mmol/L (137-145); TOTAL PROTEIN 7.4 g/dL (6.3-8.2)
--- NOTE | 2017-11-07 20:49 | RADIOLOGY REPORT (SQ) ---
EXAM DESCRIPTION: CHEST SINGLE VIEW COMPLETED DATE/TIME: 11/07/2017 8:33 pm REASON FOR STUDY: CP COMPARISON: April 2017 EXAM PARAMETERS: NUMBER OF VIEWS: One view. TECHNIQUE: Single frontal radiographic view of the chest acquired. RADIATION DOSE: NA LIMITATIONS: None. FINDINGS: LUNGS AND PLEURA: No opacities, masses or pneumothorax. No pleural effusion. MEDIASTINUM AND HILAR STRUCTURES: No masses. Contour normal. HEART AND VASCULAR STRUCTURES: Cardiac silhouette appears mildly enlarged however this may be in part related to the portable technique. BONES: No acute findings. HARDWARE: None in the chest. OTHER: No other significant finding. IMPRESSION: NO ACUTE RADIOGRAPHIC FINDING IN THE CHEST. TECHNICAL DOCUMENTATION: JOB ID: [id number] [employer]- All Rights Reserved
[2017-11-07 20:58] LABS: CREATINE KINASE MB 3.04 ng/mL (<4.55)
[2017-11-07 21:00] LABS: TROPONIN I < 0.012 ng/mL
[2017-11-07] MEDS ORDERED: MORPHINE SULFATE 10 MG/ML INJ IV ONE (21:29)
[2017-11-07] MEDS ORDERED: KETOROLAC TROMETHAMINE INJ/PF 30 MG/1 ML SDV IV ONE (22:40)
[2017-11-07] MEDS ORDERED: NORMAL SALINE 1000 ML 1,000 ML IV ONE ×2 (22:43→23:55)
--- NOTE | 2017-11-08 00:16 | RADIOLOGY REPORT (SQ) ---
EXAM DESCRIPTION: CTA of the chest per PE protocol with contrast. CLINICAL HISTORY: chest pain COMPARISON: None Available. TECHNIQUE: CTA of the chest obtained following the uncomplicated intravenous administration of 74.3 mL Isovue-370. 3-D/MIP reformatted images of the chest available for evaluation. FINDINGS: Chest: Mediastinal windows demonstrate an excellent contrast bolus. No pulmonary embolus identified. Visualized thyroid gland is unremarkable. Great vessels have normal anatomic configuration. No cardiomegaly, coronary artery atherosclerosis, or pericardial effusion. No abnormalities of the esophagus. Scattered mediastinal lymph nodes are not enlarged by CT criteria. Lung windows demonstrate no consolidation, pneumothorax, or pleural effusion. No abnormalities of the visualized trachea or airways. Limited images of the upper abdomen demonstrate no abnormalities of the visualized liver, spleen, pancreas, adrenal glands, gallbladder, or kidneys. No destructive osseous lesions. DLP: 653.52 mGycm IMPRESSION: 1. No pulmonary embolus identified. This exam was performed according to our departmental dose-optimization program, which includes automated exposure control, adjustment of the mA and/or kV according to patient size and/or use of iterative reconstruction technique.
[2017-11-08 01:33] VITALS: BP 124/80
--- NOTE | 2017-11-09 09:40 | EKG REPORT ---
SEVERITY:- ABNORMAL ECG - SINUS RHYTHM LEFT ATRIAL ABNORMALITY PROBABLE LVH WITH SECONDARY REPOL ABNRM : Confirmed by: Anna Paris 09-Nov-2017 09:39:58
== END 2017-11-08 01:34 | disposition home or self-care (01) ==
LOC: ER 20:08
DX: I12.9 Hypertensive chronic kidney disease with stage 1 through stage 4 chronic kidney disease, or unspecified chronic kidney disease (principal); N18.2 Chronic kidney disease, stage 2 (mild); R07.89 Other chest pain; R07.9 Chest pain, unspecified; E78.00 Pure hypercholesterolemia, unspecified; I25.10 Atherosclerotic heart disease of native coronary artery without angina pectoris
CPT/HCPCS: 93005; 99285; 96361; 96374; 96375; 36415; 82553; 82550; 85025; 80053; 84484; 85379; 71010; 71275; 93010; J1885; J2270; J7030 ×2

== ENCOUNTER 2018-03-09 09:40 | Emergency (ER) | payer BC ==
[2018-03-09] MEDS ORDERED: ASPIRIN 81 MG TABLET, CHEWABLE PO ONE (10:33)
--- NOTE | 2018-03-09 10:36 | ER Document Report ---
ED Medical Screen (RME) - General Chief Complaint: Chest Pain Stated Complaint: CHEST PAIN Time Seen by Provider: 03/09/18 10:29 Mode of Arrival: Ambulatory Information source: Patient TRAVEL OUTSIDE OF THE [place] IN LAST 30 DAYS: No - HPI Onset: Yesterday - LAST PM Onset/Duration: Sudden Context: AT REST Quality of pain: Dull, Pressure Severity: Moderate Associated Symptoms: Nausea. denies: Shortness of breath Exacerbated by: Denies Relieved by: Denies Similar symptoms previously: Yes - WITH M.I. IN 2005 Recently seen / treated by doctor: No - Related Data Allergies/Adverse Reactions: atorvastatin [From Lipitor] Allergy (Verified 03/09/18 09:45) Generalized rash Past Medical History - General Information source: Patient - Social History Frequency of alcohol use: None Drug Abuse: None - Past Medical History Cardiac Medical History: Reports: Hx Heart Attack - SEP 18, 2016, Hx Hypercholesterolemia, Hx Hypertension Pulmonary Medical History: Denies: Hx Asthma Neurological Medical History: Denies: Hx Cerebrovascular Accident, Hx Seizures Endocrine Medical History: Reports: Hx Diabetes Mellitus Type 2 Renal/ Medical History: Denies: Hx Peritoneal Dialysis GI Medical History: Denies: Hx Hepatitis, Hx Hiatal Hernia, Hx Ulcer Infectious Medical History: Denies: Hx Hepatitis Past Surgical History: Reports: Hx Cardiac Catheterization, Hx Cardiac Surgery - stent placed in 2015, Hx Hysterectomy. Denies: Hx Mastectomy, Hx Open Heart Surgery, Hx Pacemaker - Immunizations Hx Diphtheria, Pertussis, Tetanus Vaccination: Yes Review of Systems - Review of Systems Constitutional: No symptoms reported EENT: No symptoms reported Cardiovascular: See HPI Respiratory: No symptoms reported Gastrointestinal: See HPI Genitourinary: No symptoms reported Musculoskeletal: No symptoms reported Skin: No symptoms reported Neurological/Psychological: No symptoms reported Physical Exam - Vital signs Vitals: Temp Pulse Resp BP Pulse Ox 97.6 F 60 18 116/84 99 03/09/18 09:54 03/09/18 09:54 03/09/18 09:54 03/09/18 09:54 03/09/18 09:54 Interpretation: Normal. No: Tachycardic, Tachypneic, Febrile - General General appearance: Appears well, Alert In distress: None - HEENT Head: Normocephalic Eyes: Normal Conjunctiva: Normal Mouth/Lips: Normal Mucous membranes: Normal - Respiratory Respiratory status: No respiratory distress Chest status: Tender - R. PECTORAL Breath sounds: Normal - Cardiovascular Rhythm: Regular Heart sounds: Normal auscultation Murmur: No - Abdominal Inspection: Normal Distension: No distension - Extremities General upper extremity: Normal inspection General lower extremity: Normal inspection. No: Tender, Edema - Neurological Neuro grossly intact: Yes Cognition: Normal Orientation: AAOx4 - Skin Skin Temperature: Warm Skin Moisture: Dry Skin Color: Normal Skin Turgor: Elastic Course - Vital Signs Vital signs: Temp Pulse Resp BP Pulse Ox 97.6 F 60 18 116/84 99 03/09/18 09:54 03/09/18 09:54 03/09/18 10:27 03/09/18 09:54 03/09/18 09:54 Doctor's Discharge - Discharge Referrals: LUISANA CHAVIRA MD [Primary Care Provider] - Follow up as needed
[2018-03-09 11:46] LABS: ABSOLUTE BASOPHILS # (AUTO) 0.1 10^3/uL (0.0-0.2); ABSOLUTE EOSINOPHILS # (AUTO) 0.1 10^3/uL (0.0-0.6); ABSOLUTE LYMPHOCYTES (AUTO) 2.7 10^3/uL (0.5-4.7); ABSOLUTE MONOCYTES (AUTO) 0.6 10^3/uL (0.1-1.4); ABSOLUTE NEUT (AUTO) 4.3 10^3/uL (1.7-8.2); EOSINOPHILS % (AUTO) 1.7 % (0-6); HEMATOCRIT 44.3 % (36.0-47.0); LYMPHOCYTES % (AUTO) 34.3 % (13-45); MEAN CORPUSCULAR HEMOGLOBIN 24.8 pg (27.0-33.4); MEAN CORPUSCULAR HGB CONC 31.6 g/dL (32.0-36.0); MEAN CORPUSCULAR VOLUME 79 fl (80-97); PLATELET COUNT 262 10^3/uL (150-450); RED BLOOD COUNT 5.64 10^6/uL (3.72-5.28); RED CELL DISTRIBUTION WIDTH 15.8 % (11.5-14.0); TOTAL CELLS COUNTED % (AUTO) 100 %; WHITE BLOOD COUNT 7.9 10^3/uL (4.0-10.5)
--- NOTE | 2018-03-09 11:56 | RADIOLOGY REPORT (SQ) ---
EXAM DESCRIPTION: CHEST SINGLE VIEW COMPLETED DATE/TIME: 03/09/2018 11:24 am REASON FOR STUDY: CHEST PAIN COMPARISON: CT angio chest 11/07/2017 AP chest 11/07/2017, 04/12/2017, 11/15/2016 EXAM PARAMETERS: NUMBER OF VIEWS: One view. TECHNIQUE: Single frontal radiographic view of the chest acquired. RADIATION DOSE: NA LIMITATIONS: None. FINDINGS: LUNGS AND PLEURA: No opacities, masses or pneumothorax. No pleural effusion. MEDIASTINUM AND HILAR STRUCTURES: No masses. Contour normal. HEART AND VASCULAR STRUCTURES: Mild cardiomegaly BONES: No acute findings. HARDWARE: None in the chest. IMPRESSION: Mild cardiomegaly. No acute infiltrates TECHNICAL DOCUMENTATION: JOB ID: [id number] [employer]- All Rights Reserved Reading location - IP/workstation name: [email or web address]
[2018-03-09 12:15] LABS: CREATINE KINASE MB 0.91 ng/mL (<4.55)
[2018-03-09 12:23] LABS: TROPONIN I < 0.012 ng/mL
[2018-03-09] MEDS ORDERED: KETOROLAC TROMETHAMINE INJ/PF 30 MG/1 ML SDV IV ONE (12:24)
[2018-03-09 13:37] LABS: ALANINE AMINOTRANSFERASE 22 U/L (9-52); ALBUMIN 3.6 g/dL (3.5-5.0); ALKALINE PHOSPHATASE 78 U/L (38-126); ANION GAP 11 (5-19); ASPARTATE AMINO TRANSFERASE 18 U/L (14-36); BILIRUBIN,DIRECT 0.3 mg/dL (0.0-0.4); BILIRUBIN,TOTAL 0.7 mg/dL (0.2-1.3); BLOOD UREA NITROGEN 21 mg/dL (7-20); CALCIUM 10.1 mg/dL (8.4-10.2); CARBON DIOXIDE 27 mmol/L (22-30); CHLORIDE 105 mmol/L (98-107); CREATINE KINASE 79 U/L (30-135); GLUCOSE 112 mg/dL (75-110); POTASSIUM 5.3 mmol/L (3.6-5.0); SODIUM 143.4 mmol/L (137-145); TOTAL PROTEIN 6.4 g/dL (6.3-8.2)
[2018-03-09 13:41] VITALS: BP 100/66
--- NOTE | 2018-03-09 13:46 | ER Document Report ---
ED General - General Chief Complaint: Chest Pain Stated Complaint: CHEST PAIN Time Seen by Provider: 03/09/18 10:29 Mode of Arrival: Ambulatory TRAVEL OUTSIDE OF THE [place] IN LAST 30 DAYS: No - HPI Patient complains to provider of: Chest pain Notes: Patient coming in for evaluation of chest pain. Patient states chest pain ongoing since last night. States pain worse with moving around and moving her hands above her head. Patient denies any trauma denies any fever chills nausea vomiting diarrhea. Patient states he is not taking anything for chest pain at home. Patient is does have a history of an DC with stent placement in 2016. States no dynamic testing since that time. Patient resting company upon my evaluation requesting chips. - Related Data Allergies/Adverse Reactions: atorvastatin [From Lipitor] Allergy (Verified 03/09/18 09:45) Generalized rash Past Medical History - General Information source: Patient - Social History Smoking Status: Never Smoker Frequency of alcohol use: None Drug Abuse: None Family History: Reviewed & Not Pertinent Patient has suicidal ideation: No Patient has homicidal ideation: No - Past Medical History Cardiac Medical History: Reports: Hx Heart Attack - SEP 18, 2016, Hx Hypercholesterolemia, Hx Hypertension Pulmonary Medical History: Denies: Hx Asthma Neurological Medical History: Denies: Hx Cerebrovascular Accident, Hx Seizures Endocrine Medical History: Reports: Hx Diabetes Mellitus Type 2 Renal/ Medical History: Denies: Hx Peritoneal Dialysis GI Medical History: Denies: Hx Hepatitis, Hx Hiatal Hernia, Hx Ulcer Infectious Medical History: Denies: Hx Hepatitis Past Surgical History: Reports: Hx Cardiac Catheterization, Hx Cardiac Surgery - stent placed in 2015, Hx Hysterectomy. Denies: Hx Mastectomy, Hx Open Heart Surgery, Hx Pacemaker - Immunizations Hx Diphtheria, Pertussis, Tetanus Vaccination: Yes Review of Systems - Review of Systems Constitutional: No symptoms reported EENT: No symptoms reported Cardiovascular: Chest pain Respiratory: No symptoms reported Gastrointestinal: No symptoms reported Genitourinary: No symptoms reported Female Genitourinary: No symptoms reported Musculoskeletal: No symptoms reported Skin: No symptoms reported Hematologic/Lymphatic: No symptoms reported Neurological/Psychological: No symptoms reported -: Yes All other systems reviewed and negative Physical Exam - Vital signs Vitals: Temp Pulse Resp BP Pulse Ox 97.6 F 60 18 116/84 99 03/09/18 09:54 03/09/18 09:54 03/09/18 09:54 03/09/18 09:54 03/09/18 09:54 Interpretation: Normal - General General appearance: Appears well, Alert - HEENT Head: Normocephalic, Atraumatic Eyes: Normal Pupils: PERRL - Respiratory Respiratory status: No respiratory distress Chest status: Tender - Tenderness to palpation center chest reproduces patient' s pain. Breath sounds: Normal Chest palpation: Normal - Cardiovascular Rhythm: Regular Heart sounds: Normal auscultation Murmur: No - Abdominal Inspection: Normal Distension: No distension Bowel sounds: Normal Tenderness: Nontender Organomegaly: No organomegaly - Back Back: Normal, Nontender - Extremities General upper extremity: Normal inspection, Nontender, Normal color, Normal ROM , Normal temperature General lower extremity: Normal inspection, Nontender, Normal color, Normal ROM , Normal temperature, Normal weight bearing. No: Bhakti's sign - Neurological Neuro grossly intact: Yes Cognition: Normal Orientation: AAOx4 Johnnie Coma Scale Eye Opening: Spontaneous [place] Coma Scale Verbal: Oriented Johnnie Coma Scale Motor: Obeys Commands [place] Coma Scale Total: 15 Speech: Normal Motor strength normal: LUE, RUE, LLE, RLE Sensory: Normal - Psychological Associated symptoms: Normal affect, Normal mood - Skin Skin Temperature: Warm Skin Moisture: Dry Skin Color: Normal Course - Re-evaluation Re-evalutation: 03/09/18 19:19 Patient laboratory studies do not show any critical pathology slightly elevated potassium. Patient was given IV fluids here. Patient able tolerate p.o. Patient examinations consistent with chest wall pain. No signs of cardiac ischemia. Patient requesting to be discharged at this time that that she has significant upper grandchild. Do believe this is appropriate educated patient about use of anti-inflammatories for her pain. Patient was encouraged to drink plenty of fluids stay hydrated. The patient has atypical chest pain as the patient's chest pain is not suggestive of pulmonary embolus, cardiac ischemia, aortic dissection, or other serious etiology. Given the extremely low risk of these diagnoses further testing and evaluation for these possibilities does not appear to be indicated at this time. The patient has been instructed to return if the symptoms worsen or change in any way. - Vital Signs Vital signs: Temp Pulse Resp BP Pulse Ox 97.7 F 60 21 H 100/66 100 03/09/18 13:01 03/09/18 09:54 03/09/18 13:01 03/09/18 13:01 03/09/18 13:01 - Laboratory Result Diagrams: 03/09/18 11:20 03/09/18 11:20 Laboratory results interpreted by me: 03/09/18 03/09/18 11:20 11:20 RBC 5.64 H MCV 79 L MCH 24.8 L MCHC 31.6 L RDW 15.8 H Potassium 5.3 H BUN 21 H Creatinine 1.52 H Est GFR ( Amer) 44 L Est GFR (Non-Af Amer) 36 L Glucose 112 H Discharge - Discharge Clinical Impression: Chest wall pain Condition: Good Disposition: HOME, SELF-CARE Instructions: Anti-Inflammatory Medication ([facility]), Chest Wall Pain ([facility]) Additional Instructions: Your laboratory studies and EKG today denies any signs of cardiac damage cardiac ischemia no signs of heart attack. Physical examination is consistent with chest wall pain. However recommend taking Tylenol Motrin for your pain control. Return to ER symptoms worsen follow-up with your primary care physician. Prescriptions: Ibuprofen [Motrin 600 Mg Tablet] 600 mg PO TID #30 tablet Referrals: LUISANA CHAVIRA MD [Primary Care Provider] - Follow up in 3-5 days
--- NOTE | 2018-03-09 23:49 | EKG REPORT ---
SEVERITY:- ABNORMAL ECG - SINUS RHYTHM PROBABLE LEFT ATRIAL ABNORMALITY LEFT VENTRICULAR HYPERTROPHY : Confirmed by: Anna Paris 09-Mar-2018 23:48:26
== END 2018-03-09 13:55 | disposition home or self-care (01) ==
LOC: ER 09:40
DX: R07.89 Other chest pain (principal); I25.2 Old myocardial infarction; I10 Essential (primary) hypertension; E11.9 Type 2 diabetes mellitus without complications
CPT/HCPCS: 93005; 99285; 96374; 36415; 82553; 82550; 85025; 80053; 84484; 71045; 93010; J1885

== ENCOUNTER 2018-05-18 08:40 | Emergency (ER) | payer BC, OTHER ==
[2018-05-18 08:51] VITALS: BP 131/87
[2018-05-18] MEDS ORDERED: BACITRACIN ZINC OINTMENT 15 GM TP ONE (09:12)
--- NOTE | 2018-05-18 09:15 | ER Document Report ---
HPI - HPI Patient complains to provider of: burn Onset: Other - 2 days Onset/Duration: Persistent Quality of pain: Burning Pain Level: 4 Context: Patient states that she fell on a flattop grill 2 days ago burning her right forearm while at work. Patient with open blisters to right forearm. Patient denies any fever. Patient reports tetanus immunizations currently up-to-date. Associated Symptoms: Other - Burn to right forearm. denies: Fever Exacerbated by: Denies Relieved by: Denies Similar symptoms previously: No Recently seen / treated by doctor: No - ROS ROS below otherwise negative: Yes Systems Reviewed and Negative: Yes All other systems reviewed and negative - CONSTITUTIONAL Constitutional: DENIES: Fever, Chills - GASTROINTESTINAL Gastrointestinal: DENIES: Nausea - MUSCULOSKELETAL Musculoskeletal: REPORTS: Extremity pain. DENIES: Swelling - DERM Skin Problems: Burn Past Medical History - General Information source: Patient - Social History Smoking Status: Current Every Day Smoker Chew tobacco use (# tins/day): No Smoking Education Provided: Yes Frequency of alcohol use: None Drug Abuse: None Occupation: Foodservice Family History: Reviewed & Not Pertinent Patient has suicidal ideation: No Patient has homicidal ideation: No - Past Medical History Cardiac Medical History: Reports: Hx Heart Attack - SEP 18, 2016, Hx Hypercholesterolemia, Hx Hypertension Pulmonary Medical History: Denies: Hx Asthma Neurological Medical History: Denies: Hx Cerebrovascular Accident, Hx Seizures Endocrine Medical History: Reports: Hx Diabetes Mellitus Type 2 Renal/ Medical History: Denies: Hx Peritoneal Dialysis GI Medical History: Denies: Hx Hepatitis, Hx Hiatal Hernia, Hx Ulcer Infectious Medical History: Denies: Hx Hepatitis Past Surgical History: Reports: Hx Cardiac Catheterization, Hx Cardiac Surgery - stent placed in 2015, Hx Hysterectomy. Denies: Hx Mastectomy, Hx Open Heart Surgery, Hx Pacemaker - Immunizations Hx Diphtheria, Pertussis, Tetanus Vaccination: Yes Vertical Provider Document - CONSTITUTIONAL Agree With Documented VS: Yes Exam Limitations: No Limitations General Appearance: WD/WN, No Apparent Distress - INFECTION CONTROL TRAVEL OUTSIDE OF THE [place] IN LAST 30 DAYS: No - HEENT HEENT: Atraumatic, Normocephalic - NECK Neck: Normal Inspection - RESPIRATORY Respiratory: No Respiratory Distress - CARDIOVASCULAR Pulses: Normal: Radial - BACK Back: Normal Inspection - MUSCULOSKELETAL/EXTREMETIES Musculoskeletal/Extremeties: MAEW, Tender - Right forearm tenderness, No Edema - NEURO Level of Consciousness: Awake, Alert, Appropriate Motor/Sensory: No Motor Deficit - DERM Integumentary: Warm, Dry Notes: Superficial partial thickness burn to right forearm measuring 15 x 4 cm. Majority of the wound has been debrided, patient with few scattered blisters surrounding margins of the burn. No surrounding erythema, no edema. Course - Re-evaluation Re-evalutation: 05/18/18 09:30 Patient was given a referral to the wound clinic for further follow-up. - Vital Signs Vital signs: Temp Pulse Resp BP Pulse Ox 98.7 F 69 14 131/87 H 98 05/18/18 08:50 05/18/18 08:50 05/18/18 08:50 05/18/18 08:50 05/18/18 08:50 Discharge - Discharge Clinical Impression: Burn Condition: Stable Disposition: HOME, SELF-CARE Instructions: Chi ([facility]), Oral Narcotic Medication ([facility]), Soap Cleansing ([facility]) Additional Instructions: Return immediately for any new or worsening symptoms Followup with your primary care provider, call tomorrow to make a followup appointment Cleanse wound daily with antibacterial soap and water, cover with a thin layer of bacitracin and a dressing. Keep wound covered as it continues to heal. Follow-up with the wound management clinic for further evaluation. Call today for a follow-up appointment. Prescriptions: Bacitracin Zinc [Bacitracin Oint 15 gm] 1 applic TP DAILY #30 gm Hydrocodone/Acetaminophen [[place] 5-325 Tablet] 1 each PO Q4 PRN #15 tablet PRN Reason: Forms: Smoking Cessation Education, Return to Work Referrals: LUISANA CHAVIRA MD [Primary Care Provider] - Follow up as needed Wound Care [Provider Group] - Follow up as needed
== END 2018-05-18 09:35 | disposition home or self-care (01) ==
LOC: ER 08:40
DX: T22.211A Burn of second degree of right forearm, initial encounter (principal); X15.8XXA Contact with other hot household appliances, initial encounter; Y93.G2 Activity, grilling and smoking food; E11.9 Type 2 diabetes mellitus without complications; F17.200 Nicotine dependence, unspecified, uncomplicated; Z90.710 Acquired absence of both cervix and uterus
CPT/HCPCS: 99283; J3490

== ENCOUNTER 2019-07-07 17:13 | Emergency (ER) | payer BC ==
[2019-07-07] MEDS ORDERED: ASPIRIN 81 MG TABLET, CHEWABLE PO ONE (18:31)
[2019-07-07] MEDS ORDERED: ONDANSETRON HCL INJ/PF 4 MG/2 ML SDV IV ONE (18:32)
[2019-07-07] MEDS ORDERED: MORPHINE SULFATE 10 MG/ML INJ IV ONE (18:32)
--- NOTE | 2019-07-07 18:48 | ER Document Report ---
ED General - General Chief Complaint: Syncope Stated Complaint: POSSIBLE SYNCOPE Time Seen by Provider: 07/07/19 18:30 Primary Care Provider: LUISANA CHAVIRA MD [Primary Care Provider] - Follow up as needed Mode of Arrival: Ambulatory Information source: Patient, [facility] Records Notes: 54-year-old white male with coronary artery disease, WI in 2016 (requiring stent placement), hypertension, diabetes presents after a syncopal episode while shopping. Patient states that she had a sudden onset of lightheadedness followed by changes in her vision and then collapsed. Patient states that she woke up with people assisting her. She denies head injury. EMS reported to the patient that her blood pressure was 88/66 upon their arrival. Patient does admit to drinking and using cocaine last night. She states that she has had poor fluid intake but did it breakfast this morning. Patient is currently feeling lightheaded. She denies any recent illness, fever, chills, headache, nausea, vomiting, chest pain, shortness of breath, abdominal pain, dysuria, hematuria. Patient states when she awoke she began vomiting. TRAVEL OUTSIDE OF THE [place] IN LAST 30 DAYS: No - HPI Onset: Just prior to arrival Onset/Duration: Sudden Quality of pain: No pain Severity: None Associated symptoms: None, Nausea, Vomiting, Other - Dizziness. denies: Chest pain, Chills, Nonproductive cough, Productive cough, Fever, Shortness of breath Exacerbated by: Standing Relieved by: Remaining still Similar symptoms previously: No Recently seen / treated by doctor: No - Related Data Allergies/Adverse Reactions: atorvastatin [From Lipitor] Allergy (Verified 03/09/18 09:45) Generalized rash Past Medical History - General Information source: Patient - Social History Smoking Status: Current Every Day Smoker Cigarette use (# per day): Yes - 10 Smoking Education Provided: Yes - Smoking cessation counseling was provided for 4 minutes at the bedside Frequency of alcohol use: Occasional Drug Abuse: Cocaine Lives with: Alone Family History: Reviewed & Not Pertinent Patient has suicidal ideation: No Patient has homicidal ideation: No - Past Medical History Cardiac Medical History: Reports: Hx Heart Attack - SEP 18, 2016, Hx Hypercholes terolemia, Hx Hypertension Pulmonary Medical History: Denies: Hx Asthma Neurological Medical History: Denies: Hx Cerebrovascular Accident, Hx Seizures Endocrine Medical History: Reports: Hx Diabetes Mellitus Type 2 Renal/ Medical History: Denies: Hx Peritoneal Dialysis GI Medical History: Denies: Hx Hepatitis, Hx Hiatal Hernia, Hx Ulcer Infectious Medical History: Denies: Hx Hepatitis Past Surgical History: Reports: Hx Cardiac Catheterization, Hx Cardiac Surgery - stent placed in 2016, Hx Hysterectomy. Denies: Hx Mastectomy, Hx Open Heart Surgery, Hx Pacemaker - Immunizations Hx Diphtheria, Pertussis, Tetanus Vaccination: Yes Review of Systems - Review of Systems Notes: REVIEW OF SYSTEMS: CONSTITUTIONAL : Denies fever, chills, or sweats. Denies recent illness. Denies weight loss, recent hospitalizations. EENT: Denies visual changes, eye pain. Denies sore throat, oral lesions, difficulty swallowing. CARDIOVASCULAR: Denies chest pain. Denies palpitations. Denies lower extremity edema. RESPIRATORY: Denies cough. Denies shortness of breath, wheezing. GASTROINTESTINAL: Denies abdominal pain or distention. Denies diarrhea. Denies blood in vomitus, stools, or per rectum. Denies black, tarry stools. Denies constipation. GENITOURINARY: Denies difficulty urinating, painful urination, frequency, blood in urine, or vaginal discharge. MUSCULOSKELETAL: Denies back or neck pain or stiffness. Denies joint pain or swelling. SKIN: Denies rash, lesions or sores. HEMATOLOGIC : Denies easy bruising or bleeding. LYMPHATIC: Denies swollen glands. NEUROLOGICAL: Denies confusion or altered mental status. Denies dizziness. Denies headache. Denies weakness or paralysis. Denies problems difficulty with ambulation, slurred speech. Denies sensory loss, numbness, or tingling. Denies seizures. PSYCHIATRIC: Denies anxiety or stress. Denies depression, suicidal ideation, or homicidal ideation. Denies visual or auditory hallucinations. Physical Exam - Vital signs Vitals: Temp Pulse Resp BP Pulse Ox 98.0 F 101 H 18 90/71 L 94 07/07/19 17:19 07/07/19 17:19 07/07/19 17:19 07/07/19 17:19 07/07/19 17:19 - Notes Notes: PHYSICAL EXAMINATION: GENERAL: Well-appearing, well-nourished and in no acute distress. HEAD: Atraumatic, normocephalic. EYES: Pupils equal round and reactive to light, extraocular movements intact, conjunctiva are normal. ENT: Nares patent, oropharynx clear without exudates. Moist mucous membranes. NECK: Normal range of motion, supple without lymphadenopathy LUNGS: Breath sounds clear to auscultation bilaterally and equal. No wheezes rales or rhonchi. HEART: Regular rate and rhythm without murmurs ABDOMEN: Soft, nontender, nondistended abdomen. No guarding, no rebound. No masses appreciated. Female : deferred Musculoskeletal: Normal range of motion, no pitting or edema. No cyanosis. NEUROLOGICAL: Cranial nerves grossly intact. Normal speech, normal gait. Normal sensory, motor exams PSYCH: Normal mood, normal affect. SKIN: Warm, Dry, normal turgor, no rashes or lesions noted. Course - Re-evaluation Re-evalutation: 07/07/19 18:52 Temp Pulse Resp BP Pulse Ox 98.0 F 82 18 101/62 94 07/07/19 17:19 07/07/19 18:29 07/07/19 17:19 07/07/19 18:29 07/07/19 17:19 Laboratory 07/07/19 07/07/19 07/07/19 19:15 19:15 19:15 WBC 7.9 RBC 5.94 H Hgb 15.4 Hct 47.6 H MCV 80 MCH 25.9 L MCHC 32.3 RDW 15.4 H Plt Count 345 Lymph % (Auto) 27.7 [place] % (Auto) 10.0 Eos % (Auto) 0.8 Baso % (Auto) 1.0 Absolute Neuts (auto) 4.8 Absolute Lymphs (auto) 2.2 Absolute Monos (auto) 0.8 Absolute Eos (auto) 0.1 Absolute Basos (auto) 0.1 Seg Neutrophils % 60.5 Sodium 139.0 Potassium 4.8 Chloride 105 Carbon Dioxide 26 Anion Gap 8 BUN 28 H Creatinine 2.41 H Est GFR ( Amer) 25 L Est GFR (MDRD) Non-Af 21 L Glucose 76 Calcium 10.3 H Magnesium 2.1 Total Bilirubin 0.7 Direct Bilirubin 0.2 Neonat Total Bilirubin Not Reportable Neonat Direct Bilirubin Not Reportable Neonat Indirect Bili Not Reportable AST 23 ALT 12 Alkaline Phosphatase 75 Creatine Kinase 242 H CK-MB (CK-2) 1.86 Troponin I < 0.012 Total Protein 6.8 Albumin 4.0 Urine Color Urine Appearance Urine pH Ur Specific Stevens Urine Protein Urine Glucose (UA) Urine Ketones Urine Blood Urine Nitrite Urine Bilirubin Urine Urobilinogen Ur Leukocyte Esterase Urine WBC (Auto) U Hyaline Cast (Auto) Squamous Epi Cells Auto Urine Mucus (Auto) Urine Ascorbic Acid Urine Opiates Screen Urine Methadone Screen Ur Barbiturates Screen Ur Phencyclidine Scrn Ur Amphetamines Screen U Benzodiazepines Scrn Urine Cocaine Screen U Marijuana (THC) Screen Serum Alcohol < 10 07/07/19 07/07/19 07/07/19 21:04 21:04 22:20 WBC RBC Hgb Hct MCV MCH MCHC RDW Plt Count Lymph % (Auto) [place] % (Auto) Eos % (Auto) Baso % (Auto) Absolute Neuts (auto) Absolute Lymphs (auto) Absolute Monos (auto) Absolute Eos (auto) Absolute Basos (auto) Seg Neutrophils % Sodium Potassium Chloride Carbon Dioxide Anion Gap BUN Creatinine Est GFR ( Amer) Est GFR (MDRD) Non-Af Glucose Calcium Magnesium Total Bilirubin Direct Bilirubin Neonat Total Bilirubin Neonat Direct Bilirubin Neonat Indirect Bili AST ALT Alkaline Phosphatase Creatine Kinase CK-MB (CK-2) Troponin I < 0.012 Total Protein Albumin Urine Color YELLOW Urine Appearance SLIGHTLY-CLOUDY Urine pH 5.0 Ur Specific Stevens 1.015 Urine Protein 30 H Urine Glucose (UA) NEGATIVE Urine Ketones NEGATIVE Urine Blood NEGATIVE Urine Nitrite NEGATIVE Urine Bilirubin NEGATIVE Urine Urobilinogen 2.0 H Ur Leukocyte Esterase NEGATIVE Urine WBC (Auto) 5 U Hyaline Cast (Auto) 36 Squamous Epi Cells Auto 4 Urine Mucus (Auto) FEW Urine Ascorbic Acid NEGATIVE Urine Opiates Screen UNCONFIRMED POSITIVE Urine Methadone Screen NEGATIVE Ur Barbiturates Screen NEGATIVE Ur Phencyclidine Scrn NEGATIVE Ur Amphetamines Screen NEGATIVE U Benzodiazepines Scrn NEGATIVE Urine Cocaine Screen UNCONFIRMED POSITIVE U Marijuana (THC) Screen UNCONFIRMED POSITIVE Serum Alcohol 07/07/19 22:20 WBC RBC Hgb Hct MCV MCH MCHC RDW Plt Count Lymph % (Auto) [place] % (Auto) Eos % (Auto) Baso % (Auto) Absolute Neuts (auto) Absolute Lymphs (auto) Absolute Monos (auto) Absolute Eos (auto) Absolute Basos (auto) Seg Neutrophils % Sodium 136.8 L Potassium 4.5 Chloride 104 Carbon Dioxide 24 Anion Gap 9 BUN 28 H Creatinine 2.02 H Est GFR ( Amer) 31 L Est GFR (MDRD) Non-Af 26 L Glucose 115 H Calcium 9.2 Magnesium Total Bilirubin Direct Bilirubin Neonat Total Bilirubin Neonat Direct Bilirubin Neonat Indirect Bili AST ALT Alkaline Phosphatase Creatine Kinase CK-MB (CK-2) Troponin I Total Protein Albumin Urine Color Urine Appearance Urine pH Ur Specific Stevens Urine Protein Urine Glucose (UA) Urine Ketones Urine Blood Urine Nitrite Urine Bilirubin Urine Urobilinogen Ur Leukocyte Esterase Urine WBC (Auto) U Hyaline Cast (Auto) Squamous Epi Cells Auto Urine Mucus (Auto) Urine Ascorbic Acid Urine Opiates Screen Urine Methadone Screen Ur Barbiturates Screen Ur Phencyclidine Scrn Ur Amphetamines Screen U Benzodiazepines Scrn Urine Cocaine Screen U Marijuana (THC) Screen Serum Alcohol Chest X-Ray 07/07/19 18:31 IMPRESSION: NO ACUTE FINDINGS. Temp Pulse Resp BP Pulse Ox 98.0 F 82 15 109/73 99 07/07/19 20:11 07/07/19 18:29 07/07/19 23:02 07/07/19 23:02 07/07/19 23:02 ED Course History: 54-year-old female with coronary artery disease, hypertension, type 2 diabetes presents with a syncopal episode. Patient admits to cocaine and alco hol use yesterday. Denies prior similar symptoms. Patient evaluated. Vital signs were reviewed. Patient is afebrile, not tachycardic, not hypoxic mild hypotension. Previous medical records and nursing notes reviewed. Patient does not appear toxic or dehydrated they are in no acute distress Exam Findings: Patient has a normal exam but is found to be orthostatic positive. She denies any black or bloody stools. Lab Findings: CBC is without leukocytosis or anemia. CMP shows no electrolyte abnormalities, impaired renal function which is patient's baseline. LFTs WNL. UA not consistent with UTI. Cardiac enzymes within normal limits. Urine drug screen + cocaine, marijuana, opiates. EKG:NSR, LVH Patient Interventions/Monitor: ekg monitor, 2L IV fluids, Zofran, meclizine, cardiac work-up. Revaluation: Patient sat up stated I feel "much better can I go?" Patient walking w steady gate. dizziness resolved. MDM: Presentation of syncope of unclear etiology. Although suspect substance abuse and dehydration. Patient alert, without focal neurologic deficits at time of arrival. Denies syncope was during exertion. No preceding symptoms of palpitations, chest pain, or shortness of breath. Patient asymptomatic at time of arrival except for feeling dizzy. EKG is without evidence of HCOM, right heart strain, ST changes to suggest ischemia, prolong QTc, delta wave, epsilon wave, or Brugada syndrome. Patient denies any family history of sudden cardiac . Patient denies any symptoms to suggest an acute PE, [place], TAD, SAH, seizure, or acute GI bleed as the etiology of their syncope today. On exam, no murmurs to suggest critical aortic stenosis as possible etiology. Based on overall clinical history, exam findings, vitals, and patients appearance, I feel it is safe for patient to be discharged home at this time with close outpatient follow-up and strict return precautions. Patient is in agreement with this plan, has verbalized indications for return to ED, and questions have been answered. Disposition:discharge home 07/07/19 23:53 Patient reevaluated and is resting comfortably. States she is feeling much better. Had a long discussion regarding her cocaine and marijuana use and the importance of cessation. 07/08/19 06:32 07/08/19 06:37 07/08/19 06:39 - Vital Signs Vital signs: Temp Pulse Resp BP Pulse Ox 98.0 F 82 15 109/73 99 07/07/19 20:11 07/07/19 18:29 07/07/19 23:02 07/07/19 23:02 07/07/19 23:02 - Laboratory Result Diagrams: 07/07/19 19:15 07/07/19 22:20 Laboratory results interpreted by me: 07/07/19 07/07/19 07/07/19 19:15 19:15 21:04 RBC 5.94 H Hct 47.6 H MCH 25.9 L RDW 15.4 H Sodium BUN 28 H Creatinine 2.41 H Est GFR ( Amer) 25 L Est GFR (MDRD) Non-Af 21 L Glucose Calcium 10.3 H Creatine Kinase 242 H Urine Protein 30 H Urine Urobilinogen 2.0 H 07/07/19 22:20 RBC Hct MCH RDW Sodium 136.8 L BUN 28 H Creatinine 2.02 H Est GFR ( Amer) 31 L Est GFR (MDRD) Non-Af 26 L Glucose 115 H Calcium Creatine Kinase Urine Protein Urine Urobilinogen - Diagnostic Test Radiology reviewed: Image reviewed, Reports reviewed - EKG Interpretation by Me EKG shows normal: Sinus rhythm Rate: Normal Voltage: Consistant with LVH When compared to previous EKG there are: No significant change Discharge - Discharge Clinical Impression: Syncope and collapse, Dehydration, Polysubstance abuse, Renal insufficiency Condition: Good Disposition: HOME, SELF-CARE Instructions: Cocaine Abuse ([facility]), Dehydration ([facility]), Kidney Function Abnormality ([facility]), Kidney Injury ([facility]), Syncopal Episode ([facility]) Additional Instructions: Your urine drug screen was positive for marijuana and cocaine. I believe this with a combination of dehydration is the cause for your syncopal episode. You were seen today after an episode of passing out. Your EKG here is unchanged. At this time, we do not feel that your episode of passing out was from any life-threatening cause. Please drink plenty of fluids over the next several days. Return to emergency department if you have any further episodes of syncope, headache, weakness, numbness, chest pain, or shortness of breath. Please follow up closely with your primary care physician. Forms: Return to Work Referrals: LUISANA CHAVIRA MD [Primary Care Provider] - Follow up as needed
[2019-07-07] MEDS ORDERED: MECLIZINE HCL 25 MG TABLET PO ONE (18:50)
[2019-07-07] MEDS: RINGERS SOLUTION,LACTATED 1,000 ML IV PRN ×2 (19:13→19:14)
[2019-07-07 19:31] LABS: ABSOLUTE BASOPHILS # (AUTO) 0.1 10^3/uL (0.0-0.2); ABSOLUTE EOSINOPHILS # (AUTO) 0.1 10^3/uL (0.0-0.6); ABSOLUTE LYMPHOCYTES (AUTO) 2.2 10^3/uL (0.5-4.7); ABSOLUTE MONOCYTES (AUTO) 0.8 10^3/uL (0.1-1.4); ABSOLUTE NEUT (AUTO) 4.8 10^3/uL (1.7-8.2); EOSINOPHILS % (AUTO) 0.8 % (0-6); HEMATOCRIT 47.6 % (36.0-47.0); HEMOGLOBIN 15.4 g/dL (12.0-15.5); LYMPHOCYTES % (AUTO) 27.7 % (13-45); MEAN CORPUSCULAR HEMOGLOBIN 25.9 pg (27.0-33.4); MEAN CORPUSCULAR HGB CONC 32.3 g/dL (32.0-36.0); MEAN CORPUSCULAR VOLUME 80 fl (80-97); PLATELET COUNT 345 10^3/uL (150-450); RED BLOOD COUNT 5.94 10^6/uL (3.72-5.28); RED CELL DISTRIBUTION WIDTH 15.4 % (11.5-14.0); SEGMENTED NEUTROPHILS % (AUTO) 60.5 % (42-78); TOTAL CELLS COUNTED % (AUTO) 100 %; WHITE BLOOD COUNT 7.9 10^3/uL (4.0-10.5)
[2019-07-07 19:44] LABS: ALKALINE PHOSPHATASE 75 U/L (38-126); ANION GAP 8 (5-19); ASPARTATE AMINO TRANSFERASE 23 U/L (14-36); BILIRUBIN,DIRECT 0.2 mg/dL (0.0-0.4); BILIRUBIN,TOTAL 0.7 mg/dL (0.2-1.3); BLOOD UREA NITROGEN 28 mg/dL (7-20); CALCIUM 10.3 mg/dL (8.4-10.2); CARBON DIOXIDE 26 mmol/L (22-30); CHLORIDE 105 mmol/L (98-107); CREATINE KINASE 242 U/L (30-135); GLUCOSE 76 mg/dL (75-110); POTASSIUM 4.8 mmol/L (3.6-5.0); TOTAL PROTEIN 6.8 g/dL (6.3-8.2)
[2019-07-07 19:48] LABS: ALCOHOL < 10 mg/dL (NONE DETECTED)
[2019-07-07 19:56] LABS: CREATINE KINASE MB 1.86 ng/mL (<4.55); TROPONIN I < 0.012 ng/mL
[2019-07-07] MEDS ORDERED: MAG HYDROX/AL HYDROX/SIMETH SUSP 30 ML UDCUP PO ONE (19:56)
[2019-07-07] MEDS ORDERED: METOCLOPRAMIDE HCL ORAL SOLN 10 MG/10 ML UDCUP PO ONE (19:56)
[2019-07-07] MEDS ORDERED: DICYCLOMINE HCL 20 MG TABLET PO ONE (19:56)
[2019-07-07] MEDS ORDERED: LIDOCAINE 2% VISCOUS SOLN 20 ML UDCUP PO ONE (19:56)
--- NOTE | 2019-07-07 20:02 | RADIOLOGY REPORT (SQ) ---
EXAM DESCRIPTION: CHEST 2 VIEWS COMPLETED DATE/TIME: 07/07/2019 7:38 pm REASON FOR STUDY: syncope COMPARISON: 03/09/2018 TECHNIQUE: Frontal and lateral radiographic views of the chest acquired. NUMBER OF VIEWS: Two view. LIMITATIONS: None. FINDINGS: LUNGS AND PLEURA: No pneumothorax. No consolidation or pleural effusion. MEDIASTINUM AND HILAR STRUCTURES: Stable. HEART AND VASCULAR STRUCTURES: Stable. BONES: No acute findings. HARDWARE: None in the chest. OTHER: No other significant finding. IMPRESSION: NO ACUTE FINDINGS. TECHNICAL DOCUMENTATION: JOB ID: [id number] 2010 [employer]- All Rights Reserved Reading location - IP/workstation name: [facility]
[2019-07-07 21:37] LABS: APPEARANCE,URINE SLIGHTLY-CLOUDY; BILIRUBIN,URINE NEGATIVE (NEGATIVE); COLOR,URINE YELLOW; GLUCOSE, URINE NEGATIVE (NEGATIVE); KETONES,URINE NEGATIVE (NEGATIVE); LEUKOCYTE ESTERASE,URINE NEGATIVE (NEGATIVE); NITRITE,URINE NEGATIVE (NEGATIVE); PROTEIN,URINE 30 mg/dL (NEGATIVE); URINE SPECIFIC GRAVITY 1.015
[2019-07-07 21:46] LABS: URINE AMPHETAMINES SCREEN NEGATIVE; URINE BARBITURATES SCREEN NEGATIVE; URINE BENZODIAZEPINES SCREEN NEGATIVE; URINE COCAINE SCREEN UNCONFIRMED POSITIVE; URINE MARIJUANA (THC) SCREEN UNCONFIRMED POSITIVE; URINE METHADONE SCREEN NEGATIVE; URINE PHENCYCLIDINE SCREEN NEGATIVE
[2019-07-07 23:00] LABS: ANION GAP 9 (5-19); BLOOD UREA NITROGEN 28 mg/dL (7-20); CALCIUM 9.2 mg/dL (8.4-10.2); CARBON DIOXIDE 24 mmol/L (22-30); CHLORIDE 104 mmol/L (98-107); GLUCOSE 115 mg/dL (75-110); POTASSIUM 4.5 mmol/L (3.6-5.0)
[2019-07-08 00:07] VITALS: BP 109/73
--- NOTE | 2019-07-08 10:05 | EKG REPORT ---
SEVERITY:- ABNORMAL ECG - SINUS OR ECTOPIC ATRIAL RHYTHM VENTRICULAR PREMATURE COMPLEX NONSPECIFIC INTRAVENTRICULAR CONDUCTION DELAY ANTERIOR Q WAVES, POSSIBLY DUE TO LVH LA ABNORMALITY : Confirmed by: Efrain Travis MD 08-Jul-2019 10:05:35
--- NOTE | 2019-07-08 10:05 | EKG REPORT ---
SEVERITY:- ABNORMAL ECG - SINUS RHYTHM PROBABLE LEFT ATRIAL ABNORMALITY PROBABLE LVH WITH SECONDARY REPOL ABNRM : Confirmed by: Efrain Travis MD 08-Jul-2019 10:04:55
== END 2019-07-08 | disposition home or self-care (01) ==
LOC: ER 17:13
DX: R55 Syncope and collapse (principal); N28.9 Disorder of kidney and ureter, unspecified; E86.0 Dehydration; F19.10 Other psychoactive substance abuse, uncomplicated; R42 Dizziness and giddiness; F17.210 Nicotine dependence, cigarettes, uncomplicated; I10 Essential (primary) hypertension; E11.9 Type 2 diabetes mellitus without complications; I25.2 Old myocardial infarction; Z90.710 Acquired absence of both cervix and uterus
CPT/HCPCS: 93005; 99406; 99284; 96361; 96374; 96375; 36415; 82553; 80307 ×2; 82550; 83735; 85025; 80053; 81001; 84484; 71046; 93010; J3490 ×2; J2270; J2405; J7120